=== PATIENT | male | born 1995 | race Caucasian/White ===

== ENCOUNTER 2025-01-06 12:12 | Outpatient (CLI) | payer BC, SELFPAY ==
[2025-01-06 12:42] LABS: Hematocrit 44.3 % (42.0-52.0); Hemoglobin 14.8 g/dL (14.0-18.0); Mean Corpuscular HGB Conc 33.4 g/dl (32-36); Mean Corpuscular Volume 89.7 fl (80-100); Mean Platelet Volume 9.4 fl (7.4-10.4); Platelet Count Result 284 k/mm3 (150-375); Red Blood Count 4.94 M/mm3 (4.6-6.20); Red Cell Distribution Width 12.3 % (11.5-14.5); White Blood Count 9.4 K/mm3 (4.5-10.0)
--- OUTSIDE RECORDS SUMMARY | 2025-01-06 13:00 | XMS_ITS | Encounter Summary ---
Author Organization [facility] Address [facility] [place] [address] Care Team Providers Care Netbackup Admin Name Role Phone Kuldeep Hernandez MD Primary Care Provider Unavailable Austen Muniz MD Primary Care Provider Unav ailable Jose Luis Muniz MD Primary Care Provider [phone] Encounter Details Date Type Department Care Team (Late st Contact Info) Description 08/22/2017 Abstract [place] [address] Kuldeep Hernandez MD Social History Tobacco Use Types Packs/Day Years Used Date Smoking Tobacco: Never Assessed Sex and Gender Information Value Date Recorded Sex Assigned at Not on file Legal Sex Male 8:18 PM CDT Gender Identity Not on file Sexual Orientation Not on file documented as of this encounter Plan of Treatment Not on file documented as of this encounter Visit Diagnoses Not on filedocumented in this encounter Additional Health Concerns Infection Onset Date Last Indicated Resolved Time COVID-19 Rule Out 03/26/2021 03/26/2021 03/28/2021 3:11 PM CDT documented as of this encounter Care Teams Netbackup Admin Relationship Specialty Start Date End Date Kuldeep Hernandez MD PCP - General 01/18/15 Austen Muniz MD PCP - General FAMILY PRACTICE 06/13/19 03/28/20 Jose Luis Muniz MD [address] [facility] [address] [place] [address] PCP - General FAMILY PRACTICE 03/29/20 documented as of this encounter
--- OUTSIDE RECORDS SUMMARY | 2025-01-06 13:00 | XMS_ITS | Clinical Summary ---
Author Organization [facility] Address [address] [address] Care Team Providers Care Fruit Bar Maker Name Role Phone Unavailable Primary Care Provider Unavailabl e Medications fenofibrate (LOFIBRA) 160 mg Tablet take 1 tablet (160 mg) by MOUTH once daily 90 Tablet 3 3 6:18 PM GOLF CLUB REPAIRER 10/23/19 23 Active buPROPion HCL (WELLBUTRIN XL) 150 mg Extended Release 24 hour tablet Take 1 Tablet (150 mg) by mouth daily. 30 Tablet 5 4 3:47 PM CDT 11/23/19 24 Active glucagon (Gvoke HypoPen 2-Pack) 1 mg/0.2 mL Auto-Injector Inject 0.2 milliliter (1 mg) by subcutaneous route once in the abdomen, thigh, or upper arm. May repeat in 15 minutes if inadequate response. 0.4 mL 1 4 3:07 PM GOLF CLUB REPAIRER 12/04/19 24 Active Insulin Syringe-Needl e U-100 0.5 mL 31 gauge x 5/16 Syringe Use to inject humalog at mealtimes 180 Each 2 4 2:15 PM GOLF CLUB REPAIRER 12/04/19 24 Active insulin glargine U-300 conc (Toujeo SoloStar U-300 Insulin) 300 unit/mL pen syringe Inject 50 Units by subcutaneous injection every evening 15 mL 5 4 4:50 PM GOLF CLUB REPAIRER 12/08/19 24 Active triamcinolone acetonide (KENALOG) 0.1 % Ointment Apply to affected area(s) on trunk and extremities two times a day for 14 days, then apply as needed 454 Gram 1 4 8:30 AM CDT 01/08/20 24 Active buPROPion HCL (WELLBUTRIN XL) 300 mg Extended Release 24 hour tablet Take 1 Tablet (300 mg) by mouth daily. 90 Tablet 3 04/11/20 24 Active buPROPion HCL (WELLBUTRIN XL) 300 mg Extended Release 24 hour tablet Take 1 Tablet (300 mg) by mouth daily. 90 Tablet 1 4 9:57 AM CDT 06/30/20 24 Active glucagon (Gvoke HypoPen 2-Pack) 1 mg/0.2 mL Auto-Injector Inject 1 mg (0.2 ml) by subcutaneous route once in the abdomen, thigh, or upper arm. May repeat in 15 minutes if inadequate response. 0.4 mL 4 3:11 PM CDT 07/19/20 24 Active mupirocin (BACTROBAN) 2 % Ointment Apply to wound two times a day 22 Gram 4 3:11 PM CDT 08/02/20 24 Active tirzepatide, weight loss, (Zepbound) 2.5 mg/0.5 mL Pen Injector Inject 2.5 mg by subcutaneous injection every 7 days. 2 mL 08/03/20 24 Active ketoconazole (NIZORAL) 2 % Cream Apply to feet two times a day as directed 30 Gram 3 5 4:10 PM GOLF CLUB REPAIRER 11/07/19 25 Active insulin lispro (HumaLOG,ADME LOG) 100 unit/mL vial Use as directed for insulin pump, Max Daily Dose: 150 units 80 mL 5 12:48 PM CDT 11/28/19 25 Active insulin pump cart,auto,BT, G6/L (Omnipod 5, G6/Tyrel 2 Plus,) Cartridge Change every 2 days as directed 120 Each 2 01/07/20 25 Active insulin lispro (HumaLOG,ADME LOG) 100 unit/mL vial Use as directed for insulin pump, Max Daily Dose: 150 units 80 mL 01/07/20 25 Active Blood-Glucose Sensor (FreeStyle Tyrel 2 Plus Sensor) Device change sensor every 15 days 6 Each 12 01/07/20 25 Active glucagon (Gvoke HypoPen 2-Pack) 1 mg/0.2 mL Auto-Injector Inject 1 mg (0.2 mL) subcutaneously once. May repeat once after 15 minutes if no response 0.4 mL 01/07/20 25 Active Blood-Glucose Sensor (Dexcom G7 Sensor) Device Use one sensor every 10 days 9 Each 3 10/01/05 Discontinued Encounters Date Type Department Care Team Description 12/13/2024 External Device Data ST[facility] ABSTRACTION Provider, Abstract 12/07/2024 External Device Data [facility] ABSTRACTION Provider, Abstract 11/09/2024 External Device Data [facility] ABSTRACTION Provider, Abstract 11/08/2024 External Device Data [facility] ABSTRACTION Provider, Abstract 11/01/2024 External Device Data [facility] ABSTRACTION Provider, Abstract from Last 3 Months Social History Tobacco Use Types Packs/Day Years Used Date Smoking Tobacco: Never Assessed Sex and Gender Information Value Date Recorded Sex Assigned at Not on file Legal Sex Male 11:33 AM CDT Gender Identity Not on file Sexual Orientation Not on file Plan of Treatment Health Maintenance Due Date Last Done Comments DTAP/TDAP/TD VACCINES (1 - Tdap) 2013 HEPATITIS B VACCINES (1 of 3 - 19+ 3-dose series) 2013 INFLUENZA VACCINE (#1) 2024 HPV VACCINES Aged Out No longer eligi ble based on patient's age to complete this topic PNEUMOCOCCAL VACCINE 0-49 YEARS Aged Out No longer eligible based on patient's age to complete this topic Insurance RX [facility] Commercial
--- OUTSIDE RECORDS SUMMARY | 2025-01-06 13:00 | XMS_ITS | Referral Summary ---
Author Organization [address] Address [address] [place] [address] Care Team Providers Care Dictating Machine Typist Name Role Phone Jose Luis Muniz MD Primary Care Provider [phone] [phone] Allergies Active Allergy Reactions Criticality Noted Date Comments Ciprofloxacin Hives Medium 01/02/2021 Medications Contour Next Test Strips strip USE TO CHECK BLOOD SUGAR SIX TIMES A DAY 1 Active cetirizine (ZyrTEC) 10 mg tablet Take 10 mg by mouth daily Active clobetasoL (TEMOVATE) 0.05 % gel 0 Active glucagon (glucagon) 1 mg kit Glucagon Emergency 1 MG Injection KitUSE DIRECTED 0 Active HumaLOG U-100 Insulin 100 unit/mL injection UP TO 110 UNITS VIA INSULIN PUMP DAILY 1 Active ketoconazole (NIZORAL) 2 % cream 1 Active metFORMIN (GLUCOPHAGE) 500 mg tablet Take 1,000 mg by mouth 2 times daily 0 Active omeprazole (PriLOSEC) 20 mg capsule Take 20 mg by mouth daily Active simvastatin (ZOCOR) 40 mg tablet Take 40 mg by mouth daily 0 Active Active Problems Problem Noted Date Diagnosed Date ROSALIE (obstructive sleep apnea) 01/02/2021 Parasomnia 01/02/2021 Overview (01/02/2021): Stable Overweight 01/02/2021 Overview (01/02/2021): Patient will work on weight reduction. Moderate persistent asthma without complication 01/02/2021 Obstructive sleep apnea 01/02/2021 Social History Tobacco Use Types Packs/Day Years Used Date Smoking Tobacco: Never Smokeless Tobacco: Never Personal Safety Answer Date Recorded Getting School Help Needed Not on file 12/19 Sex and Gender Information Value Date Recorded Sex Assigned at Not on file Legal Sex Male 9:01 PM COMPRESSOR SERVICE TECHNICIAN Gender Identity Not on file Sexual Orientation Not on file Last Filed Vital Signs Vital Sign Reading Time Taken Comments Blood Pressure 124/82 01/02/2021 8:25 AM CDT Pulse 103 01/02/2021 8:25 AM CDT Temperature 36.4 C (97.5 F) 01/02/2021 8:25 AM CDT Respiratory Rate 18 01/02/2021 8:25 AM CDT Oxygen Saturation 98% 01/02/2021 8:25 AM CDT Inhaled Oxygen Concentration - - Weight 135.2 kg (298 lb) 01/02/2021 8:25 AM CDT Height 180.3 cm (5' 11 ) 09/25/2019 5:30 PM COMPRESSOR SERVICE TECHNICIAN Body Mass Index 41.56 09/25/2019 5:30 PM COMPRESSOR SERVICE TECHNICIAN Plan of Treatment Not on file Insurance [employer] Care Teams Dictating Machine Typist Relationship Specialty Start Date End Date Jose Luis Muniz MD [address] [facility] [address] [place] [address] PCP - General 09/25/19
--- OUTSIDE RECORDS SUMMARY | 2025-01-06 13:00 | XMS_ITS | Encounter Summary ---
Author Organization [facility] Address [address] [place] [address] Care Team Providers Care Bulk Picker Name Role Phone Unavailable Primary Care Provider Unavailabl e Prior Encounters Date Type Department Care Team Description 01/28/2022 6:15 PM CDT Office Visit [facility] [address] [place] [address] Rachel Landry, DMD 01/28/2022 6:00 PM CDT Office Visit [facility] [address] [place] [address] 07/02/2021 Travel 07/02/2021 6:00 PM CDT Office Visit [facility] [address] [place] [address] Rachel Landry, DMD 07/02/2021 6:00 PM CDT Office Visit [facility] [address] [place] [address] Beena Hallman, [facility] 11/07/2019 Converted CPS Chart Documents [facility] [address] [place] [phone] <No scans attached> 11/07/2019 Converted 13x Documents [facility] [address] [place] [phone] <No scans attached> Last Filed Vital Signs Vital Sign Reading Time Taken Comments Blood Pressure 126/98 01/28/2022 6:06 PM CDT Pulse 91 01/28/2022 6:06 PM CDT Temperature - - Respiratory Rate - - Oxygen Saturation - - Inhaled Oxygen Concentration - - Weight - - Height - - Body Mass Index - - Plan of Treatment Not on file Procedures Procedure Name Priority Date/Time Associated Diagnosis Comments BITEWINGS - FOUR RADIOGRAPHIC IMAGES Routine 01/28/2022 6:15 PM CDT PERIODIC ORAL EVALUATION - ESTABLISHED PATIENT Routine 01/28/2022 6:15 PM CDT TOPICAL APPLICATION OF FLUORIDE VARNISH Routine 01/28/2022 6:00 PM CDT PROPHYLAXIS - ADULT Routine 01/28/2022 6 :00 PM CDT ORAL HYGIENE INSTRUCTIONS Routine 2021 6:00 PM CDT PERIODIC ORAL EVALUATION - ESTABLISHED PATIENT Routine 07/02/2021 6:00 PM CDT ORAL HYGIENE INSTRUCTIONS Routine 2020 6:00 PM CDT TOPICAL APPLICATION OF FLUORIDE VARNISH Routine 07/02/2021 6:00 PM CDT PROPHYLAXIS - ADULT Routine 07/02/2021 6 :00 PM CDT PERIODIC ORAL EVALUATION - ESTABLISHED PATIENT Routine 12/25/2020 2:00 AM IRON CARRIER ORAL HYGIENE INSTRUCTIONS Routine 2020 2:00 AM IRON CARRIER TOPICAL APPLICATION OF FLUORIDE VARNISH Routine 12/25/2020 2:00 AM IRON CARRIER PROPHYLAXIS - ADULT Routine 12/25/2020 2 :00 AM IRON CARRIER ORAL HYGIENE INSTRUCTIONS Routine 2019 2:00 AM CDT TOPICAL APPLICATION OF FLUORIDE VARNISH Routine 06/18/2020 2:00 AM CDT PROPHYLAXIS - ADULT Routine 06/18/2020 2 :00 AM CDT PERIODIC ORAL EVALUATION - ESTABLISHED PATIENT Routine 06/18/2020 2:00 AM CDT CANCELLED APPOINTMENT Routine 05/23/2020 2:00 AM CDT ORAL HYGIENE INSTRUCTIONS Routine 2019 2:00 AM IRON CARRIER PROPHYLAXIS - ADULT Routine 11/24/2019 2 :00 AM IRON CARRIER COMPREHENSIVE ORAL EVALUATION - NEW OR ESTABLISHED PATIENT Routine 11/24/2019 2:00 AM IRON CARRIER PANORAMIC RADIOGRAPHIC IMAGE Routine 11/24/2019 2:00 AM IRON CARRIER INTRAORAL - COMPREHENSIVE SERIES OF RADIOGRAPHIC IMAGES Routine 11/24/2019 2:00 AM IRON CARRIER INTRAORAL PHOTO Routine 11/24/2019 2:00 AM IRON CARRIER INTRAORAL PHOTO Routine 11/24/2019 2:00 AM IRON CARRIER INTRAORAL PHOTO Routine 11/24/2019 2:00 AM IRON CARRIER INTRAORAL PHOTO Routine 11/24/2019 2:00 AM IRON CARRIER Visit Diagnoses Not on file Insurance [facility] PPO
--- OUTSIDE RECORDS SUMMARY | 2025-01-06 13:00 | XMS_ITS | Encounter Summary ---
Author Organization [facility] Address [address] [place] [address] Care Team Providers Care Senior Software Analyst Name Role Phone Unavailable Primary Care Provider Unavailabl e Encounter Details Date Type Department Care Team (Late st Contact Info) Description 01/08/2024 Lab Requisition [facility] - DermPath Lab [address] [facility] [place] [address] Macy Richardson MD [address] [facility] [address] [place] [address] Social History Tobacco Use Types Packs/Day Years Used Date Smoking Tobacco: Never Assessed Sex and Gender Information Value Date Recorded Sex Assigned at Not on file Gender Identity Not on file Sexual Orientation Not on file documented as of this encounter Plan of Treatment Not on file documented as of this encounter Procedures Procedure Name Priority Date/Time Associated Diagnosis Comments DERMATOPATHOLOGY Routine 01/08/2024 8:49 AM CDT documented in this encounter Results * DERMATOPATHOLOGY (01/08/2024 8:49 AM CDT) Case Report Dermatopathology Report Case: [id number] Authorizing Provider: Macy Richardson MD Collected: 01/08/2024 08:49 AM Ordering Location: [facility] - Received: 01/11/2024 10:21 AM DermPath Lab Pathologist: Pauly Walton MD Specimen: Skin, right flank 4 3:42 PM CDT DERMATOPATHOLOGY LABORATORY Final Diagnosis Specimen A. SKIN, right flank: PSORIASIFORM DERMATITIS (L44.8) (see microscopic description and comment) 4 3:42 PM CDT DERMATOPATHOLOGY LABORATORY Clinical History [place] Scaly papules / Plaques Trunk, Axilla in Guinal folds, Buttocks - AD vs 3:42 PM CDT DERMATOPATHOLOGY LABORATORY Gross Description Specimen A: Received is one formalin filled container labeled with the patient's name and designated right flank. The specimen consists of a punch biopsy measuring 4x3x4 mm. Jar 0. 3:42 PM CDT DERMATOPATHOLOGY LABORATORY Microscopic Description Specimen A. SKIN, right flank: There is psoriasiform hyperplasia of the epidermis with focal parakeratosis and spongiosis. Focal hypogranulosis is present. There is a superficial, mainly lymphohistiocytic inflammatory infiltrate. Eosinophils are not seen. IL-36 immunostain shows weak patchy positivity in the superficial aspect of the epidermis. Grocott's methenamine silver (GMS) stain is negative for fungal elements in the sections examined. Additional deeper sections were obtained and reviewed. COMMENT: The histological differential diagnosis includes a chronic eczematous dermatitis, which is favored, and early / partially treated psoriasis. 3:42 PM T DERMATOPATHOLOGY LABORATORY Disclaimer An external and internal positive and negative controls are appropriate for the histochemical, immunohistochemical and immunofluorescence stain(s) in this case (if any), except where stated explicitly. The performance characteristics of the stain(s) cited in this report were developed and its performance characteristic determined by the Dermatopathology Laboratory at [facility], directed by Dr. Salvador Mays. These tests need not be, and therefore are not, approved by the [place] Food and Drug Administration. The tests are used for clinical purposes. Billing Codes Specimen Charges Stain Charges 18882 1 [id number] 1 1 4 3:42 PM CDT DERMATOPATHOLOGY LABORATORY Embedded Images 3:42 PM CDT DERMATOPATHOLOGY LABORATORY Pathology/Cytolo gy TISSUE SPECIMEN FROM SKIN / Unknown 01/08/2024 8:49 AM CDT 01/11/2024 10:21 AM CDT Macy Richardson MD LAB - PATHOLOGY/CYT OLOGY ORDERABLES DERMATOPATHOLOGY LABORATORY [facility] - Department of Dermatology [address] [phone] documented in this encounter Visit Diagnoses Not on filedocumented in this encounter
--- OUTSIDE RECORDS SUMMARY | 2025-01-06 13:00 | XMS_ITS | Clinical Summary ---
Author Organization [address] Address [address] [place] [address] Care Team Providers Care Coal Handling Supervisor Name Role Phone Jose Luis Muniz MD Primary Care Provider +1 [phone] Allergies Active Allergy Reactions Criticality Noted Date [...] without complication 01/02/2021 Obstructive sleep apnea 01/02/2021 Medical History Medical History Date Comments ROSALIE (obstructive sleep apnea) 01/02/2021 Parasomnia 01/02/2021 Stable Moderate persistent asthma without complication 01/02/2021 Acquired clotting factor deficiency Family History Relation Name Status Comments Father Social History Tobacco Use Types Packs/Day Years Used Date Smoking Tobacco: Never Smokeless Tobacco: Never Personal Safety Answer Date Recorded Getting School Help Needed Not on file 12/19 Sex and Gender Information Value Date Recorded Sex Assigned at Not on file Legal Sex Male 9:01 PM CANCELLATION CLERK Gender Identity Not on file Sexual Orientation Not on file Obstetrics History Last Filed Vital Signs Vital Sign Reading [...] cm (5' 11 ) 09/25/2019 5:30 PM CANCELLATION CLERK Body Mass Index 41.56 09/25/2019 5:30 PM CANCELLATION CLERK Plan of Treatment Not on file Insurance [employer] Care Teams Coal Handling Supervisor Relationship Specialty Start Date End Date Jose Luis Muniz MD [address] [address] PCP - General 09/25/19
--- OUTSIDE RECORDS SUMMARY | 2025-01-06 13:00 | XMS_ITS | Clinical Summary ---
Author Organization [facility] Address Formerly [facility] [place] [address] Care Team Providers Care Water Pump Assembler Name Role Phone Jose Luis Muniz MD Primary Care Provider [phone] Allergies Active Allergy Reactions Criticality Noted Date Comments Ciprofloxacin Hives Medium 10/17/2017 Other reaction(s): Hives Prednisone Hives Medium 02/24/2012 Got hives when he took prednisone Other reaction(s): Hives Got hives when he took prednisone Medications omeprazole 20 MG capsule Take 20 mg by mouth daily. Active cetirizine 10 MG tablet Take 10 mg by mouth daily. Active MICROLET LANCETS Misc Active Insulin Infusion Pump (MINIMZambikes [place] 670G INSULIN PUMP) DeviceIndications :Type 1 diabetes mellitus with hyperglycemia ([facility]) basal rates 68.85 u/24h midnight 2.3u/hr 4am 2.85 u/hr (increased from 2.5) 9am 3.0 u/hr 8pm 3.2 u/hr 10 pm 3.0 u/hr insulin to carb ratio midnight 1:2g ISF 1:14 mg/dl , target Bs 120-120 active insulin time 4 h 1 Device 1 06/13/20 19 Active Additional Information Patient taking differently: (No instructions reported), Reported on 05/28/2022 simvastatin 40 MG tablet Take 40 mg by mouth daily. 02/18/20 20 Active clobetasol 0.05 % Gel as needed. 03/23/20 20 Active glucagon (GLUCAGON EMERGENCY) 1 MG injectionIndicati ons:Type 1 diabetes mellitus with hyperglycemia ([facility]) Glucagon Emergency 1 MG Injection KitUSE DIRECTED 1 kit 3 08/23/20 20 Active Glucose Blood (CONTOUR NEXT TEST) test stripIndications: Type 1 diabetes mellitus with hyperglycemia ([facility]),Insulin pump in place 1 strip by Other route 6 (six) times daily. 200 strip 3 07/11/20 21 Active CONTOUR NEXT EZ w/Device KitIndications:Ty pe 1 diabetes mellitus with hyperglycemia ([facility]) USE DIRECTED 1 kit 10/09/20 21 Active insulin lispro (HUMALOG) 100 UNIT/ML injection (VIAL)Indications :Type 1 diabetes mellitus with hyperglycemia ([facility]),Insulin pump in place 120 units Daily via insulin pump 100 mL 3 09/25/20 22 Active Active Problems Problem Noted Date Diagnosed Date Moderate persistent asthma without complication ([facility]) 01/02/2021 Obstructive sleep apnea syndrome 01/02/2021 Overweight 01/02/2021 Overview (05/29/2022): Patient will work on weight reduction. Patient will work on weight reduction. Parasomnia 01/02/2021 Overview (05/29/2022): Stable Stable Acid reflux 08/23/2020 Seasonal allergies 08/23/2020 High blood cholesterol 05/17/[address] 05/17/2018 Heel pain 05/28/2015 Obese 05/28/2015 Overview (05/29/2022): Overview: Estimated Body mass index is 40.48 kg/(m^2) as calculated from the following: Height as of this encounter: 5' 9.488 (1.765 m). Weight as of this encounter: 278 lb(126.1 kg). Estimated Body mass index is 40.48 kg/(m^2) as calculated from the following: Height as of this encounter: 5' 9.488 (1.765 m). Weight as of this encounter: 278 lb(126.1 kg). Type 1 diabetes mellitus ([facility]) 11/01 Encounters Date Type Department Care Team Description 10/20/2024 1:29 AM MEDICINAL CHEMIST - 10/20/2024 2:28 AM MEDICINAL CHEMIST Emergency [facility] [place] [address] Eze Tierney MD,PHD Hand Injury Discharge Disposition: Home or Self Care (Routine Discharge) 10/20/2024 Travel from Last 3 Months Immunizations Name Administration Dates Next Due DTaP-IPV (Kinrix) 06/04/2000, 6,01/02/1995,10/30 Dtap (Generic) 06/04/2000,06/04/2000 Dtp/Hib 02/22/1996, 6,02/26/1995,02/26,01/02/1995,01/02/1995,1994 ,1994 Flublok (Quadrivalent) 08/22/2020 Flucelvax 6 Months+ (Prefill ed Syringe) 07/23/2019,07/23/2019 H1N1 Injectable 2009 Influenza 09/11/2009,2008 Hepatitis A Vaccine - 2 Dose 07/04/2009, 07/04/2009,07/03/2008,07/03 Hepatitis B Pediatric 02/27/1996, 996,1994,09/15,1994,1994 Influenza (Generic) 08/22/2020, 7,06/05/2016,06/05,06/13/2015,06/13/2015,06/13/2015 ,07/14/2014,07/11/2009,07/11/2009,08/19,08/30/2008,08/10/2007, 7,08/27/2006,08/27/2006,08/20/2005,11/2004,07/30/2004,07/30/2004,08/17/20 03,08/17/2003,08/29/2002,08/29/2002,,08/19/2001,09/17/2000, 000,10/25/1999,10/25/1999 Influenza 3 yrs + Preservati ve Free (Fluzone) 08/28/2017 Influenza Adult (Generic) 08/14/2021,07/14/2014 MMR (Generic) 06/04/2000,11/02/1995 Mamtjxd-Pghml-Fbjmbmh-Varicell Sc Inj 06/04/2000 ,11/02/1995 Meningococcal Vac A,C,Y,W-135 Sc 013,03/29/2013,10/07/2006,10/07 Pneumococcal (Pneumovax 23) 09/08/2019, 9 Polio Ipv (Generic) 06/04/2000, 6,01/02/1995,10/30 Tdap (Generic) 07/04/2009,07/04/2009 Varicella Vaccine 07/04/2009, 9,11/02/1995,11/02 Family History Medical History Relation Comments Clotting Disorder Father Hypertension Father Hypertension Mother Relation Status Comments Father Mother Alive Social History Tobacco Use Types Packs/Day Years Used Date Smoking Tobacco: Never Smokeless Tobacco: Never Alcohol Use Standard Drinks/Week Comments No 0 (1 standard drink = 0.6 oz pur e alcohol) PHQ-2 Answer Date Recorded PHQ-2 Score - If the patient scores above 3, please move on to questions 3-9 0 05/28/2022 Sex and Gender Information Value Date Recorded Sex Assigned at Not on file Legal Sex Male 8:18 PM CDT Gender Identity Not on file Sexual Orientation Not on file Last Filed Vital Signs Vital Sign Reading Time Taken Comments Blood Pressure 140/86 10/20/2024 1:35 AM MEDICINAL CHEMIST Pulse 88 10/20/2024 1:14 AM MEDICINAL CHEMIST Temperature 36.4 C (97.5 F) 10/20/2024 1:14 AM MEDICINAL CHEMIST Respiratory Rate 20 10/20/2024 1:14 AM MEDICINAL CHEMIST Oxygen Saturation 99% 10/20/2024 1:14 AM MEDICINAL CHEMIST Inhaled Oxygen Concentration - - Weight 138 kg (304 lb 3.8 oz) 10/20/2024 1:14 AM MEDICINAL CHEMIST Height 180.3 cm (5' 11 ) 10/20/2024 1:14 AM MEDICINAL CHEMIST Body Mass Index 42.43 10/20/2024 1:14 AM MEDICINAL CHEMIST Plan of Treatment Health Maintenance Due Date Last Done Comments Kidney Health Evaluation 1994 Annual Physical 1997 Diabetes: Retinopathy Eye Exam 2012 Hepatitis C 2012 DTaP, Tdap and Td Vaccines (5 - Td or Tdap) 07/04/2019 07/04/2009, 07/04/2009, 06/04/2000, Additional history exists Pneumococcal Vaccine: Pediatrics (0 to 5 Years) and At-Risk Patients (6 to 64 Years) (2 of 2 - PCV) 09/08/2020 09/08/2019, 09/08/2019 Lipid Panel 08/14/2022 08/14/2021, 06/01/2015 Hemoglobin A1C 04/20/2023 10/21/2022, 05/19, 11/14/2021, Additional history exists COVID-19 Vaccine ( season) 2024 Influenza Adult (#1) 2024 08/14/2021, 08/22/2020, 08/22/2020, Additional history exists Hepatitis B Vaccines Completed 02/27/1996, 02/27/1996, 1994, Additional history exists Meningococcal Vaccine Aged Out 03/29/2013 , 03/29/2013, 10/07/2006, Additional history exists No longer eligible based on patient's age to complete this topic HPV Vaccines Aged Out No longer eligi ble based on patient's age to complete this topic Meningococcal B Vaccine Aged Out No l onger eligible based on patient's age to complete this topic RSV Immunizations Under 20 Months Aged Out No longer eligible based on patient's age to complete this topic Procedures Procedure Name Priority Date/Time Associated Diagnosis Comments XR HAND LT 3V STAT 10/20/2024 1:50 AM MEDICINAL CHEMIST OUTSIDE LAB (SCAN ORDER) Routine 10/21/2022 LIPID PANEL Routine 08/14/2021 9:15 AM CDT Type 1 diabetes mellitus with hyperglycemia from Last 3 Months or Most Recently Relevant to Health Maintenance Results * XR HAND LT 3V (10/20/2024 1:50 AM MEDICINAL CHEMIST) Anatomical Region Laterality Modality Hand Radiographic Juana ging 10/20/2024 1:51 AM MEDICINAL CHEMIST Impressions 10/20/2024 1:53 AM MEDICINAL CHEMIST IMPRESSION: 1. NO EVIDENCE OF ACUTE FRACTURE OR DISLOCATION. Signed: Lamont Child MD Referred By: Interpreted By: Lamont Child MD, 10/20/2024 1:51 AM Narrative 10/20/2024 1:53 AM MEDICINAL CHEMIST [place] [address] PATIENT NAME: LIDIA POWELL EXAM: Left hand 3 view DATE OF EXAM: 10/20/2024 COMPARISON EXAM: None INDICATION: Crush injury TECHNIQUE: AP, lateral and oblique left hand FINDINGS: Nonspecific dorsal soft tissue swelling. There is no evidence of acute fracture or dislocation. Joint spaces are well-maintained. Procedure Note Lamont Child MD - 10/20/2024 [place] [address] PATIENT NAME: LIDIA POWELL EXAM: Left hand 3 view DATE OF EXAM: 10/20/2024 COMPARISON EXAM: None INDICATION: Crush injury TECHNIQUE: AP, lateral and oblique left hand FINDINGS: Nonspecific dorsal soft tissue swelling. There is no evidenceof acute fracture or dislocation. Joint spaces are well-maintained. IMPRESSION: 1. NO EVIDENCE OF ACUTE FRACTURE OR DISLOCATION. Signed: Lamont Child MD Referred By: Interpreted By: Lamont Child MD, 10/20/2024 1:51 AM [facility] Final Result * OUTSIDE LAB (SCAN) (10/21/2022) HGB A1C 8.7 % [facility] CREATININE (U) 82.3 [facility] ALBUMIN (U) <3.0 [facility] ALBUMIN/CREAT RATIO <4 [facility] 10/21/2022 [facility] Scanned SCANNING Final Resu lt [facility] * (ABNORMAL) LIPID PANEL (08/14/2021 9:15 AM CDT) CHOLESTEROL 183 <200 MG/DL 08/14/2021 10:19 AM CDT [facility] TRIGLYCERIDES 368(H) <150 MG/DL 08/14/2021 10:19 AM CDT [facility] HDL 34(L) >40.0 MG/DL 08/14/2021 10:19 AM CDT [facility] LDL (CALCULATED) 75 <100 MG/DL 08/14/2021 10:19 AM CDT [facility] NON HDL CHOLESTEROL 149(H) <130 MG/DL 08/14/2021 10:19 AM T [facility] CHOL/HDL RATIO 5.4(H) 0.0 - 4.5 08/14/2021 10:19 AM CDT [facility] VLDL CALCULATION 74(H) 5 - 55 MG/DL 08/14/2021 10:19 AM T [facility] LIPID INTERPRETATION 08/14/2021 10:19 AM T [facility] Comment: [facility] CONCENSUS REPORT RECOMMENDATIONS: ADULT CHILD LOW RISK: CHOLESTEROL <200 <170 TRIGLYCERIDE <150 --- HDL >=60 --- LDL <100 <110 BORDERLINE: CHOLESTEROL 200-239 170-199 TRIGLYCERIDE 150-199 --- HDL 40-59 --- LDL 100-159 110-129 HIGH RISK: CHOLESTEROL >=240 >=200 TRIGLYCERIDE >=200 --- HDL <40 --- LDL >=160 >=130 08/14/2021 9:15 AM CDT John Singleton MD LABORATORY Final Result [facility] [address] [place] [address], from Last 3 Months or Most Recently Relevant to Health Maintenance Insurance [facility] [employer] [facility] [place] Care Teams Water Pump Assembler Relationship Specialty Start Date End Date Jose Luis Muniz MD [address] [place] [address] PCP - General FAMILY PRACTICE 03/29/20
--- OUTSIDE RECORDS SUMMARY | 2025-01-06 13:00 | XMS_ITS | Clinical Summary ---
Author Organization [facility] [place] [address] [place] [address] Care Team Providers Care Stereotype Molder Name Role Phone Unavailable Primary Care Provider Unavailabl e Allergies Active Allergy Reactions Criticality Noted Date Comments Ciprofloxacin Hives Medium 10/17/2017 Other reaction(s): Hives Prednisone Medium 02/24/2012 Other reaction(s): Hives Got hives when he took prednisone Medications atorvastatin calcium (ATORVASTATIN ORAL) Active accu-chek soft touch lancets by Not Applicable route. Active glucose blood (Contour Next Test Strips) test strip USE TO CHECK BLOOD SUGAR SIX TIMES A DAY 1 Active cetirizine (ZyrTEC) 10 mg tablet Take 10 mg by mouth 1 (one) time each day. Active clobetasoL (TEMOVATE) 0.05 % gel 0 Active terbinafine (LamISIL) 250 mg tablet 1 Active omeprazole OTC (PriLOSEC OTC) 20 mg EC tablet Active omeprazole (PriLOSEC) [address] capsule Take 20 mg by mouth 1 (one) time each day. Active metFORMIN (GLUCOPHAGE) 500 mg tablet Take 1,000 mg by mouth twice a day. 0 Active glucagon 1 mg/mL injection Glucagon Emergency 1 MG Injection KitUSE DIRECTED 0 Active insulin lispro (HumaLOG) 100 unit/mL injection Up to 110 units Via insulin pump daily 0 Active ketoconazole (NIZORAL) 2 % cream 1 Active glucose monitoring kit (FREESTYLE) monitoring kit See administration instructions. 1 Active glucose monitoring kit (FREESTYLE) monitoring kit 1 strip. 1 Active NovoLOG U-100 Insulin aspart 100 unit/mL injection INJECT 150 UNITS INTO THE SKIN DAILY VIA INSULIN PUMP 2 Active Active Problems Problem Noted Date Diagnosed Date Moderate persistent asthma without complication 01/02/2021 Obstructive sleep apnea syndrome 01/02/2021 Overweight 01/02/2021 Overview (07/02/2021): Patient will work on weight reduction. Parasomnia 01/02/2021 Overview (07/02/2021): Stable Acid reflux 08/23/2020 Seasonal allergies 08/23/2020 High blood cholesterol 05/17/[address] 05/17/2018 Heel pain 05/28/2015 Obese 05/28/2015 Overview (07/02/2021): Overview: Estimated Body mass index is 40.48 kg/(m^2) as calculated from the following: Height as of this encounter: 5' 9.488 (1.765 m). Weight as of this encounter: 278 lb(126.1 kg). Type 1 diabetes mellitus 11/01/2004 Immunizations Immunization Administration Dates Next Due DTP / Hib 02/22/1996, 5,01/02/1995,10/30 DTaP, unspecified 06/04/2000 DTaP-IPV 06/04/2000, 6,01/02/1995,10/30 Hep B, adolescent or pediatric 02/27/1996,1993,1994 Hepatitis A, ped/adol, 2 dose 07/04/2009, 008 Influenza, injectable, MDCK, quadrivalent, preservative 07/23/2019 Influenza, split virus, trivalent, PF 08/28/2017 Influenza, unspecified 08/22/2020,2015,06/13/2015,07/14,07/11/2009,08/30/2008,08/10/2007 ,08/27/2006,08/20/2005,07/30/2004,07/21,08/29/2002,08/19/2001, 0,10/25/1999 MMRV 06/04/2000,11/02/1995 Meningococcal MCV4P 03/29/2013,10/07/2006 Novel [id number]-[id number], all formulations 09/11/2009 Pneumococcal polysaccharide PPV23 09/08/2019 Tdap 07/04/2009 Varicella 07/04/2009,11/02/1995 Social History Tobacco Use Types Packs/Day Years Used Date Smoking Tobacco: Never Smokeless Tobacco: Never Sex and Gender Information Value Date Recorded Sex Assigned at Not on file Legal Sex Male 1:20 PM PST Gender Identity Not on file Sexual Orientation Not on file Last Filed Vital Signs Vital Sign Reading Time Taken Comments Blood Pressure 126/98 01/28/2022 6:06 PM CDT Pulse 91 01/28/2022 6:06 PM CDT Temperature - - Respiratory Rate - - Oxygen Saturation - - Inhaled Oxygen Concentration - - Weight - - Height - - Body Mass Index - - Plan of Treatment Health Maintenance Due Date Last Done Comments Dental Oral Exam 07/31/2022 01/28/2022, , 12/25/2020, Additional history exists Dental Prophylaxis 07/31/2022 01/28/2022, 0 07/02/2021, 12/25/2020, Additional history exists Dental X-Ray: Bitewings 07/31/2022 01/28/2022 Dental X-Ray: Full Mouth 05/22/2023 05/21/2020, 03/2020 Dental X-Ray: Panoramic 05/22/2023 05/21/2020, 11/24 Meningococcal B Vaccine Aged Out No l onger eligible based on patient's age to complete this topic Procedures Procedure Name Priority Date/Time Associated Diagnosis Comments PERIODIC ORAL EVALUATION - ESTABLISHED PATIENT Routine 01/28/2022 6:15 PM CDT PROPHYLAXIS - ADULT Routine 01/28/2022 6 :00 PM CDT PANORAMIC RADIOGRAPHIC IMAGE Routine 11/24/2019 2:00 AM COOK STATION INTRAORAL - COMPREHENSIVE SERIES OF RADIOGRAPHIC IMAGES Routine 11/24/2019 2:00 AM COOK STATION from Last 3 Months or Most Recently Relevant to Health Maintenance [facility]
--- OUTSIDE RECORDS SUMMARY | 2025-01-06 13:00 | XMS_ITS | Clinical Summary ---
Author Organization [facility] Address [address] [place] [address] Care Team Providers Care Contact Acid Plant Operator Name Role Phone Unavailable Primary Care Provider Unavailabl e Source Comments [facility],non-owned Affiliates and Associated Physician Practices is amultiple site organization consisting of ambulatory clinics and hospital sitesin [place], [place], [place] and [place]. This disclosure is being madepursuant to the Care Everywhere program and may not contain all information available regarding this patient. Last updated 18.[facility] [employer] Social History Tobacco Use Types Packs/Day Years Used Date Smoking Tobacco: Never Assessed Sex and Gender Information Value Date Recorded Sex Assigned at Not on file Gender Identity Not on file Sexual Orientation Not on file Plan of Treatment Health Maintenance Due Date Last Done Comments HIV SCREENING 2009 HEPATITIS C SCREENING 08/10/2012 DTAP/TDAP/TD VACCINES (1 - Tdap) 2013 HEPATITIS B VACCINE (1 of 3 - 19+ 3-dose series) 2013 COVID-19 VACCINE (1 - 2023-2 5 season) 2024 INFLUENZA VACCINE (#1) 2024 DEPRESSION SCREENING 10/19/2024 ZOSTER VACCINE (1 of 2) 2044 HIB VACCINE Aged Out No longer eligi ble based on patient's age to complete this topic HPV VACCINE Aged Out No longer eligi ble based on patient's age to complete this topic MENINGOCOCCAL (Group B) VACC INE SHARED DECISION-MAKING Aged Out No longer eligibl e based on patient's age to complete this topic MENINGOCOCCAL GROUPS A/C/Y/W VACCINE Aged Out No longer eligible b ased on patient's age to complete this topic PNEUMOCOCCAL VACCINE Aged Out No long er eligible based on patient's age to complete this topic
--- OUTSIDE RECORDS SUMMARY | 2025-01-06 13:00 | XMS_ITS | Encounter Summary ---
Author Organization [facility] Address [address] [place] [address] Care Team Providers Care Cattle Inspector Name Role Phone Unavailable Primary Care Provider Unavailabl e Encounter Details Date Type Department Care Team (Late st Contact Info) Description 07/26/2024 Lab Requisition [facility] - Derm[facility] Lab [address] [place] [address] Macy Richardson MD [address] [facility] [place] [address] [place] [address] Social History Tobacco Use Types Packs/Day Years Used Date Smoking Tobacco: Never Assessed Sex and Gender Information Value Date Recorded Sex Assigned at Not on file Gender Identity Not on file Sexual Orientation Not on file documented as of this encounter Plan of Treatment Not on file documented as of this encounter Procedures Procedure Name Priority Date/Time Associated Diagnosis Comments DERMATOPATHOLOGY Routine 07/26/2024 3:28 PM CDT documented in this encounter Results * DERMATOPATHOLOGY (07/26/2024 3:28 PM CDT) Case Report Dermatopathology Report Case: [id number] Authorizing Provider: Macy Richardson MD Collected: 07/26/2024 03:28 PM Ordering Location: [facility] - Received: 07/27/2024 03:39 PM DermPath Lab Pathologist: Arina Walton MD Specimen: Skin, right inguinal fold 12:41 PM CDT DERMATOPATHOLOGY LABORATORY Final Diagnosis Specimen A. SKIN, right inguinal fold: ACROCHORDON (SOFT FIBROMA, SKIN TAG) (L91.8) 4 12:41 PM CDT DERMATOPATHOLOGY LABORATORY Clinical History IDN vs tag, irritated 4 12:41 PM CDT DERMATOPATHOLOGY LABORATORY Gross Description Specimen A: Received is one formalin filled container labeled with the patient's name and designated right inguinal fold. The specimen consists of a shave biopsy measuring [id number] mm. Jar 0. 12:41 PM CDT DERMATOPATHOLOGY LABORATORY Microscopic Description Specimen A. SKIN, right inguinal fold: There is a gently folded epidermis surrounding a connective tissue core in which fat and collagen are intermingled. 12:41 PM CDT DERMATOPATHOLOGY LABORATORY Disclaimer An external and internal positive and negative controls are appropriate for the histochemical, immunohistochemical and immunofluorescence stain(s) in this case (if any), except where stated explicitly. The performance characteristics of the stain(s) cited in this report were developed and its performance characteristic determined by the Dermatopathology Laboratory at [facility], directed by Dr. Salvador Mays. These tests need not be, and therefore are not, approved by the [place] Food and Drug Administration. The tests are used for clinical purposes. Billing Codes Specimen Charges Stain Charges 55888 1 12:41 PM CDT DERMATOPATHOLOGY LABORATORY Embedded Images 12:41 PM CDT DERMATOPATHOLOGY LABORATORY Pathology/Cytolo gy TISSUE SPECIMEN FROM SKIN / Unknown 07/26/2024 3:28 PM CDT 07/27/2024 3:39 PM CDT Macy Richardosn MD LAB - PATHOLOGY/CYT OLOGY ORDERABLES DERMATOPATHOLOGY LABORATORY [facility] - Department of Dermatology [address], [address] [phone] documented in this encounter Visit Diagnoses Not on filedocumented in this encounter
[2025-01-06 13:13] LABS: Alanine Aminotransferase 26 U/L (6-50); Albumin Level 4.2 g/dL (3.5-5.1); Alkaline Phosphatase 152 U/L (38-126); Amylase 49 U/L (30-110); Anion Gap 14 mmol/L (4-12); Aspartate Amino Transferase 25 U/L (17-59); Bilirubin,Total 0.4 mg/dL (0.2-1.3); Blood Urea Nitrogen 20 mg/dL (9-20); Calcium 9.2 mg/dL (8.4-10.2); Carbon Dioxide 25 mmol/L (22-30); Chloride 100 mmol/L (98-107); Cholesterol 234 mg/dL (0-200); Estimated Glomerular Filt Rate > 60; Glucose 286 mg/dL (65-110); Lipase 57 U/L (23-300); Potassium 4.3 mmol/L (3.4-5.0); Sodium 139 mmol/L (137-145)
[2025-01-06 13:15] LABS: HDL Direct 40 mg/dL
[2025-01-06 13:17] LABS: LDL Cholesterol Direct 37 mg/dL
[2025-01-06 13:25] LABS: Free T4 Free Thyroxine 1.44 ng/dL (0.78-2.19)
[2025-01-06 13:39] LABS: Triglycerides 557 mg/dL (<150)
[2025-01-06 13:41] LABS: Creatinine Urine 158.2 mg/dL
[2025-01-06 13:45] LABS: MALB Creatinine Ratio 5.2 mg/g (0-30); Microalbumin Urine Random 8.2 mg/L (0-16.7)
[2025-01-10 14:38] LABS: Glutamic acid decarboxylase AA >250 IU/mL (<5)
== END 2025-01-06 12:13 | disposition home or self-care (01) ==
LOC: ANHLAB 12:15
PROVIDERS: PCP Family Medicine; Visit Provider Internal Medicine
DX: E10.9 Type 1 diabetes mellitus without complications (principal); E78.5 Hyperlipidemia, unspecified
CPT/HCPCS: 36415; 80053; 80061; 82043; 82150; 83690; 84439; 84443; 85027; 86341

== ENCOUNTER 2025-01-27 14:40 | Outpatient (CLI) | payer BC, SELFPAY ==
--- NOTE | ~2025-01-27 | US_ITS ---
Abdominal Sonogram: Real-time sonographic imaging of the abdomen was performed. Clinical History: Diabetes Findings: The liver appears echogenic with no evidence of mass lesion or bile duct dilatation. Liver measures 18.2 cm in length. Main portal vein demonstrates normal direction of flow. The spleen is no rmal in size without evidence of focal lesion. The gallbladder is well distended, and appears normal with no evidence of gallstone or wall thickening. The common bile duct measures 6 mm. The visualize d pancreas, aorta, and IVC are unremarkable. The right kidney measures 13.1 cm in length and the lef t kidney measures 10.7 cm. There is no hydronephrosis or renal calculus. Impression: Diffuse fatty infiltration of the liver, with associated hepatomegaly. Reviewed, dictated and finalized at location . Impression: Diffuse fatty infiltration of the liver, with associated hepatomegaly.
--- OUTSIDE RECORDS SUMMARY | 2025-01-27 14:46 | XMS_ITS | Clinical Summary ---
Author Organization [address] Address [address] [place] [id number] Care Team Providers Care Kennel Keeper Name Role Phone Jose Luis Muniz MD Primary Care Provider [phone] Allergies Active Allergy Reactions Criticality Noted Date [...] on file Legal Sex Male 9:01 PM MUD ENGINEER Gender Identity Not on file Sexual Orientation [...] cm (5' 11 ) 09/25/2019 5:30 PM MUD ENGINEER Body Mass Index 41.56 09/25/2019 5:30 PM MUD ENGINEER Plan of Treatment Not on file Insurance [employer] Care Teams Kennel Keeper Relationship Specialty Start Date End Date Jose Luis Muniz MD [address] [address] PCP - General 09/25/19
--- OUTSIDE RECORDS SUMMARY | 2025-01-27 14:46 | XMS_ITS | Clinical Summary ---
Author Organization [facility] Address [address] [place] [address] Care Team Providers Care Commercial Intelligence Manager Name Role Phone Unavailable Primary Care Provider [...] 0,10/25/1999 MMRV 06/04/2000,11/02/1995 Meningococcal MCV4P 03/29/2013,10/07/2006 Novel [id number], all formulations 09/11/2009 Pneumococcal polysaccharide PPV23 09/08/2019 [...] PANORAMIC RADIOGRAPHIC IMAGE Routine 11/24/2019 2:00 AM KIDNEY PULLER INTRAORAL - COMPREHENSIVE SERIES OF RADIOGRAPHIC IMAGES Routine 11/24/2019 2:00 AM KIDNEY PULLER from Last 3 Months or Most Recently Relevant to Health Maintenance [facility]
--- OUTSIDE RECORDS SUMMARY | 2025-01-27 14:46 | XMS_ITS | Encounter Summary ---
Author Organization [facility] Address [address] [place] [address] Care Team Providers Care Gas Combustion Engineer Name Role Phone Unavailable Primary Care Provider Unavailabl e Encounter Details Date Type Department Care Team (Late st Contact Info) Description 01/08/2024 Lab Requisition [facility] - DermPath Lab [address] [facility], [place] [address] Macy Richardson MD [address] [facility] 3 [place] [address] Social History Tobacco Use Types Packs/Day Years [...] AM CDT) Case Report Dermatopathology Report Case: [id number] Authorizing Provider: Macy Richardson MD Collected: 01/08/2024 08:49 AM Ordering Location: [facility] - Received: 01/11/2024 10:21 AM DermPath Lab Pathologist: Pauly Walton MD Specimen: Skin, right flank 4 3:42 PM CDT DERMATOPATHOLOGY LABORATORY Final Diagnosis Specimen A. SKIN, right flank: PSORIASIFORM DERMATITIS (L44.8) (see microscopic description and comment) 4 3:42 PM CDT DERMATOPATHOLOGY LABORATORY Clinical History [place] Scaly papules / Plaques Trunk, Axilla in [...] characteristic determined by the Dermatopathology Laboratory at [facility], directed by Dr. Salvador Mays. These tests need not be, and therefore are not, approved by the [place] Food and Drug Administration. The tests are used for clinical purposes. Billing Codes Specimen Charges Stain Charges 42988 1 [id number] 56793 1 1 4 3:42 PM CDT DERMATOPATHOLOGY LABORATORY Embedded Images 3:42 PM CDT DERMATOPATHOLOGY LABORATORY Pathology/Cytolo gy TISSUE SPECIMEN FROM SKIN / Unknown 01/08/2024 8:49 AM CDT 01/11/2024 10:21 AM CDT Macy Richardson MD LAB - PATHOLOGY/CYT OLOGY ORDERABLES DERMATOPATHOLOGY LABORATORY [facility] - Department of Dermatology [address], [address] [phone] documented in this encounter Visit Diagnoses Not on filedocumented in this encounter
--- OUTSIDE RECORDS SUMMARY | 2025-01-27 14:46 | XMS_ITS | Referral Summary ---
Author Organization [address] Address [address] [place] [address] Care Team Providers Care Maxillofacial Surgeon Name Role Phone Jose Luis Muniz MD Primary Care Provider [phone] Allergies Active Allergy Reactions Criticality Noted Date [...] on file Legal Sex Male 9:01 PM CORE LOADER Gender Identity Not on file Sexual Orientation [...] cm (5' 11 ) 09/25/2019 5:30 PM CORE LOADER Body Mass Index 41.56 09/25/2019 5:30 PM CORE LOADER Plan of Treatment Not on file Insurance [employer] Care Teams Maxillofacial Surgeon Relationship Specialty Start Date End Date Jose Luis Muniz MD [address] [facility] [address] [place] [address] PCP - General 09/25/19
--- OUTSIDE RECORDS SUMMARY | 2025-01-27 14:46 | XMS_ITS | Clinical Summary ---
Author Organization [facility] Address [facility]ly [facility] [place] [address] Care Team Providers Care English Faculty Member Name Role Phone Jose Luis Muniz MD Primary Care Provider [phone] Allergies Active Allergy Reactions Criticality Noted Date [...] MICROLET LANCETS Misc Active Insulin Infusion Pump (MINIMPulse.io 670G INSULIN PUMP) DeviceIndications :Type 1 diabetes mellitus with hyperglycemia ([facility] HHS/HCC) basal rates 68.85 u/24h midnight 2.3u/hr [...] injectionIndicati ons:Type 1 diabetes mellitus with hyperglycemia ([facility] HHS/HCC) Glucagon Emergency 1 MG Injection KitUSE DIRECTED 1 kit 3 08/23/20 20 Active Glucose Blood (CONTOUR NEXT TEST) test stripIndications: Type 1 diabetes mellitus with hyperglycemia ([facility] HHS/[facility]),Insulin pump in place 1 strip by Other route 6 (six) times daily. 200 strip 3 07/11/20 21 Active CONTOUR NEXT EZ w/Device KitIndications:Ty pe 1 diabetes mellitus with hyperglycemia ([facility] HHS/HCC) USE DIRECTED 1 kit 10/09/20 21 Active insulin lispro (HUMALOG) 100 UNIT/ML injection (VIAL)Indications :Type 1 diabetes mellitus with hyperglycemia ([facility] HHS/[facility]),Insulin pump in place 120 units Daily via insulin pump 100 mL 3 09/25/20 22 Active Active Problems Problem Noted Date Diagnosed Date Moderate persistent asthma without complication ([facility]) 01/02/2021 Obstructive sleep apnea syndrome 01/02/2021 Overweight [...] 278 lb(126.1 kg). Type 1 diabetes mellitus ([facility]) 11/01 Immunizations Name Administration Dates Next Due DTaP-IPV [...] Influenza Adult (Generic) 08/14/2021,07/14/2014 MMR (Generic) 06/04/2000,11/02/1995 Zqqrggn-Bnudo-Ueauebm-Varicell Sc Inj 06/04/2000 ,11/02/1995 Meningococcal Vac A,C,Y,W-135 [...] Comments Blood Pressure 140/86 10/20/2024 1:35 AM PLASTICS SHEET FINISHING PRESS OPERATOR Pulse 88 10/20/2024 1:14 AM PLASTICS SHEET FINISHING PRESS OPERATOR Temperature 36.4 C (97.5 F) 10/20/2024 1:14 AM PLASTICS SHEET FINISHING PRESS OPERATOR Respiratory Rate 20 10/20/2024 1:14 AM PLASTICS SHEET FINISHING PRESS OPERATOR Oxygen Saturation 99% 10/20/2024 1:14 AM PLASTICS SHEET FINISHING PRESS OPERATOR Inhaled Oxygen Concentration - - Weight 138 kg (304 lb 3.8 oz) 10/20/2024 1:14 AM PLASTICS SHEET FINISHING PRESS OPERATOR Height 180.3 cm (5' 11 ) 10/20/2024 1:14 AM PLASTICS SHEET FINISHING PRESS OPERATOR Body Mass Index 42.43 10/20/2024 1:14 AM PLASTICS SHEET FINISHING PRESS OPERATOR Plan of Treatment Health Maintenance Due Date [...] history exists COVID-19 Vaccine ( season) 2024 Hepatitis B Vaccines Completed 02/27/1996, 02/27/1996, 1994, [...] Procedure Name Priority Date/Time Associated Diagnosis Comments OUTSIDE LAB (SCAN ORDER) Routine 10/21/2022 LIPID PANEL Routine 08/14/2021 9:15 AM CDT Type 1 diabetes mellitus with hyperglycemia from Last 3 Months or Most Recently Relevant to Health Maintenance Results * OUTSIDE LAB (SCAN) (10/21/2022) HGB A1C 8.7 % [facility] CREATININE (U) 82.3 [facility] ALBUMIN (U) <3.0 [facility] ALBUMIN/CREAT RATIO <4 [facility] 10/21/2022 [facility] Scanned SCANNING Final Resu lt [facility] * (ABNORMAL) LIPID PANEL (08/14/2021 9:15 AM CDT) CHOLESTEROL 183 <200 MG/DL 08/14/2021 10:19 AM CDT [facility] TRIGLYCERIDES 368(H) <150 MG/DL 08/14/2021 10:19 AM T [facility] HDL 34(L) >40.0 MG/DL 08/14/2021 10:19 AM CDT [facility] LDL (CALCULATED) 75 <100 MG/DL 08/14/2021 10:19 AM CDT [facility] NON HDL CHOLESTEROL 149(H) <130 MG/DL 08/14/2021 10:19 AM CDT [facility] CHOL/HDL RATIO 5.4(H) 0.0 - 4.5 08/14/2021 10:19 AM CDT [facility] VLDL CALCULATION 74(H) 5 - 55 MG/DL 08/14/2021 10:19 AM T [facility] LIPID INTERPRETATION 08/14/2021 10:19 AM T [facility] Comment: [facility] CONCENSUS REPORT RECOMMENDATIONS: ADULT CHILD LOW RISK: CHOLESTEROL <200 <170 TRIGLYCERIDE <150 --- HDL >=60 --- LDL <100 <110 BORDERLINE: CHOLESTEROL 200-239 170-199 TRIGLYCERIDE 150-199 --- HDL 40-59 --- LDL 100-159 110-129 HIGH RISK: CHOLESTEROL >=240 >=200 TRIGLYCERIDE >=200 --- HDL <40 --- LDL >=160 >=130 08/14/2021 9:15 AM CDT John Singleton MD LABORATORY Final Result [facility] [address] [place] [address], [place] [phone] from Last 3 Months or Most Recently Relevant to Health Maintenance Insurance [facility] BLUE [facility] [place] Care Teams English Faculty Member Relationship Specialty Start Date End Date Jose Luis Muniz MD [address] [place] [address] PCP - General FAMILY PRACTICE 03/29/20
--- OUTSIDE RECORDS SUMMARY | 2025-01-27 14:46 | XMS_ITS | Clinical Summary ---
Author Organization [facility] Address [address] [place] [address] Care Team Providers Care Dietary Services Director Name Role Phone Unavailable Primary Care Provider Unavailabl e Medications fenofibrate (LOFIBRA) 160 mg Tablet take 1 tablet (160 mg) by MOUTH once daily 90 Tablet 3 3 6:18 PM METEOROLOGICAL OBSERVER 10/23/19 23 Active buPROPion HCL (WELLBUTRIN XL) [...] response. 0.4 mL 1 4 3:07 PM METEOROLOGICAL OBSERVER 12/04/19 24 Active Insulin Syringe-Needl e U-100 0.5 mL 31 gauge x 5/16 Syringe Use to inject humalog at mealtimes 180 Each 2 4 2:15 PM METEOROLOGICAL OBSERVER 12/04/19 24 Active insulin glargine U-300 conc (Toujeo SoloStar U-300 Insulin) 300 unit/mL pen syringe Inject 50 Units by subcutaneous injection every evening 15 mL 5 4 4:50 PM METEOROLOGICAL OBSERVER 12/08/19 24 Active triamcinolone acetonide (KENALOG) 0.1 [...] directed 30 Gram 3 5 4:10 PM METEOROLOGICAL OBSERVER 11/07/19 25 Active insulin lispro (HumaLOG,ADME LOG) 100 unit/mL vial Use as directed for insulin pump, Max Daily Dose: 150 units 80 mL 5 12:48 PM CDT 11/28/19 25 Active insulin pump cart,auto,BT, G6/L (Omnipod 5, G6/Tyrel 2 Plus,) Cartridge Change every 2 days as directed 120 Each 2 5 3:02 PM CDT 01/07/20 25 Active insulin lispro (HumaLOG,ADME LOG) 100 unit/mL vial Use as directed for insulin pump, Max Daily Dose: 150 units 80 mL 01/07/20 25 Active Blood-Glucose Sensor (FreeStyle Tyrel 2 Plus Sensor) Device change sensor every 15 days 6 Each 12 5 3:02 PM CDT 01/07/20 25 Active glucagon (Gvoke HypoPen 2-Pack) 1 mg/0.2 mL Auto-Injector Inject 1 mg (0.2 mL) subcutaneously once. May repeat once after 15 minutes if no response 0.4 mL 5 3:02 PM CDT 01/07/20 25 Active fenofibrate (LOFIBRA) 54 mg Take 1 Tablet (54 mg) by mouth daily. 90 Tablet 5 3:02 PM CDT 01/08/20 25 Active icosapent ethyL (VASCEPA) 1 gram Capsule Take 2 Capsules (2 Grams) by mouth 2 times daily. 300 Capsule 5 3:02 PM CDT 01/08/20 25 Active Blood-Glucose Sensor (Dexcom G7 Sensor) Device Use one sensor every 10 days 9 Each 3 07/21/20 24 2024 Discontinued Encounters Date Type Department Care Team Description 01/17/2025 External Device Data [facility] ABSTRACTION Provider, Abstract 12/13/2024 External Device Data [facility] ABSTRACTION Provider, [...]
--- OUTSIDE RECORDS SUMMARY | 2025-01-27 14:46 | XMS_ITS | Encounter Summary ---
Author Organization [facility] Address [address] [place] [address] Care Team Providers Care Help Desk Supervisor Name Role Phone Unavailable Primary Care Provider Unavailabl e Encounter Details Date Type Department Care Team (Late st Contact Info) Description 07/26/2024 Lab Requisition [facility] Physician [facility] - DermPath Lab [address] [facility], [place] [address] Macy Richardson MD [address] [facility] [address]L [place] [address] Social History Tobacco Use Types Packs/Day Years [...] PM CDT) Case Report Dermatopathology Report Case: [id number] Authorizing Provider: Macy Richardson MD Collected: 07/26/2024 03:28 PM Ordering Location: [facility] Physician [facility] - Received: 07/27/2024 03:39 PM DermPath Lab [...] specimen consists of a shave biopsy measuring 40o34d69 mm. Jar 0. 12:41 PM CDT DERMATOPATHOLOGY [...] characteristic determined by the Dermatopathology Laboratory at [facility], directed by Dr. Salvador Mays. These tests need not be, and therefore are not, approved by the [place] Food and Drug Administration. The tests are used for clinical purposes. Billing Codes Specimen Charges Stain Charges 33788 1 12:41 PM CDT DERMATOPATHOLOGY LABORATORY Embedded Images 12:41 PM CDT DERMATOPATHOLOGY LABORATORY Pathology/Cytolo gy TISSUE SPECIMEN FROM SKIN / Unknown 07/26/2024 3:28 PM CDT 07/27/2024 3:39 PM CDT Macy Richardson MD LAB - PATHOLOGY/CYT OLOGY ORDERABLES DERMATOPATHOLOGY LABORATORY [facility] - Department of Dermatology [address] [phone] documented in this encounter Visit Diagnoses Not on filedocumented in this encounter
--- OUTSIDE RECORDS SUMMARY | 2025-01-27 14:46 | XMS_ITS | Continuity of Care Document ---
Author Organization [facility] Address [address] [place] [address] Phone Care Team Providers Care Brass Plater Name Role Phone Larissa Ceja DNP Unavailable Unavail able Allergies, Adverse Reactions, Alerts Substance Reaction Status Criticality ciprofloxacin hives Active No Information Medications Medication Instructions Dosage Effective Dates (start - stop) Status Comments omeprazole 20 mg capsule,delayed release take 1 capsule by oral route every day before a meal 20 MG - Active Zyrtec 10 mg tablet take 1 tablet (10MG) by oral route every day 10 MG - Active insulin pump cartridge SubQ - Active Novolog 100 unit/mL Sub-Q inject 5 - 25 by subcutaneous route as per insulin sliding scale protocol 5-25 - Active Procedures Procedure Date ROUTINE VENIPUNCTURE SPECIMEN HANDLING OFFICE/OUTPATIENT VISIT, EST Nurse Only MENINGOCOCCAL VACCINE, IM IMMUNIZATION ADMIN PREV VISIT, EST, AGE 18-39 CAPILLARY BLOOD DRAW OFFICE/OUTPATIENT VISIT, EST CAPILLARY BLOOD DRAW PREV VISIT, NEW, AGE 12-17 OFFICE/OUTPATIENT VISIT, EST OFFICE/OUTPATIENT VISIT, EST STREP A ASSAY W/OPTIC OFFICE/OUTPATIENT VISIT, EST STREP A ASSAY W/OPTIC PREV VISIT, EST, AGE 12-17 Advance Directives Directive Yes / No Effective Date File Name No Information Encounters Encounter Description Practice Location Reason(s) For Visit Diagnoses Date Provider Providers Copied on Encounter [facility], [address] [place] [address], [address] [place] [address], tel:[phone] [place] No Information 5 Julio C Meltonbi. [address] [place] [address], [address] [place] [address] , . tel:[phone] [facility], [address] [place] [address], [address] [place] [address], tel:[phone] [place] No Information 5 Denise Leija. [address] [place] [address], [facility], . tel:[phone] [facility], [address] [place] [address], [address] [place] [address], [phone] [place] No Information 4 Denise Leija. [address] [place] [address], [facility], . tel:[phone] [facility], [address] [place] [address], [address] [place] [address], tel:[phone] [place] No Information 4 Denise Leija. [address] [place] [address], [facility], . tel:[phone] Referring Provider: Liss Walker, [address] [place] [address], [facility]. tel:[phone] [facility], [address] [place] [address], [address] [place] [address], tel:[phone] [place] Diabetes Mellitus, Juvenile, Controlled 4 Alexandra Frias. [address] [place] [address], [facility], . [phone] OFFICE/OUTPAT IENT VISIT, EST [facility], [address] [place] [address], [address] [place] [address], [place] tel:[phone] [place] cough (chief complaint) headache (chief complaint) fever (chief complaint) Bronchitis, Acute 3 Alexandra Frias. [address] [place] [address], [facility], . tel:[phone] [facility], [address] [place] [address], [id number], tel:[phone] [place] Diabetes Mellitus, Juvenile, Controlled 3 Denise Liss. [address] [place] [address], [facility], . tel:[phone] [facility], [address] [place] [address], [id number], tel:[phone] [place] No Information 3 Phill Farrukh. [address] [place] [address], [address] [place] [address] . tel:[phone] PREV VISIT, EST, AGE 18-39 [facility], [address] [place] [address], [id number], [place] tel:[phone] [place] physical (chief complaint) Other general medical examination for administrative purposes 3 Phill Farrukh. [address] [place] [address], [address] [place] [address] . tel:[phone] Referring Provider: Kimberley Rodriges, [address] [place] [address], [facility]. tel:[phone] [facility], [address] [place] [address], [id number], tel:[phone] [place] Acne Vulgaris, NOS 2 Phill Farrukh. [address] [place] [address], [address] [place] [address] . tel:[phone] OFFICE/OUTPAT IENT VISIT, EST [facility], [address] [place] [address], [id number], tel:[phone] [place] diabetes (follow up) (chief complaint) med check (chief complaint) Diabetes Mellitus, Juvenile, Controlled Jun- 2 Phill Farrukh. [address] [place] [address], [id number] . tel:[phone] Referring Provider: Farrukh Pollock, [address] [place] [address], [id number] . tel:[phone] PREV VISIT, NEW, AGE 12-17 [facility], [address] [place] [address], [id number], tel:[phone] [facility] physical (chief complaint) Diabetes Mellitus (chief complaint) Diabetes Mellitus, Juvenile, ControlledOther general medical examination for administrative purposes 1 Zahira Chu. [address] [place] [address], [facility], . tel:[phone] Referring Provider: Kimberley Rodriges, [address] [place] [address], [facility]. tel:[phone] OFFICE/OUTPAT IENT VISIT, [facility], [address] [place] [address], [id number], tel:[phone] [place] cough (chief complaint) Bronchitis, AcuteBronchitis, Acute May- 1 Emma Barber. [address] [place] [address], [facility]. tel:[phone] Referring Provider: Elisabeth Carter, [address] [place] [address], [facility]. tel:[phone] OFFICE/OUTPAT IENT VISIT, [facility], [address] [place] [address], [id number], tel:[phone] [facility] sore throat (chief complaint) Pharyngitis, AcuteAllergic rhinitisAcne Vulgaris, NOS Ayad- 1 Sammy Figueroa . [address] [place] [address], [facility], . tel:[phone] Referring Provider: Carolina Christianson, [address] [place] [address], [facility]. tel:[phone] OFFICE/OUTPAT IENT VISIT, EST [facility], [address] [place] [address], [address] [place] [address] tel:[phone] [place] No Information 1 Sammy Figueroa . [address] [place] [address], [address] [place] [address]. tel:[phone] Referring Provider: Carolina Christianson, [address] [place] [address], [facility]. tel:[phone] PREV VISIT, EST, AGE 12-17 [facility], [address] [place] [address], [address] [place] [address] tel:[phone] [place] No Information 0 Dar Patrick. [address] [place] [address], [address] [place] [address]. tel:[phone] Referring Provider: Celina Dodge, [address] [place] [address], [facility]. tel:[phone] Family History Family Member Type Diagnosis Age At Onset Problem (finding) Family history of Blood disease Problem (finding) Family history of malig nant melanoma Problem (finding) Family history of Diabe shy mellitus Mother Problem (finding) Renal disease Father Problem (finding) Heart disease Problem (finding) Family history of Heart disease Mother Problem (finding) Liver disease Immunizations Vaccine Date Status Comments MCV4 (11-55 yrs) administered Source: New Immunization Record Payers Payer name Insurance type Covered republican ID Authoriza tishree(s) [facility] [id number] Social History Type Description Quantity Date Captured Comments Sex Male Smoking Status No Information Chief Complaint And Reason For Visit No Information Reason For Referral Reason For Referral No Information Plan Of Treatment Date Type Action Status Referral Ordered: Referral: Dermatology. Follow-up and Treat. ordered History Of Present Illness Encounter Date Complaint History Of Prese nt Illness No Information Functional Status Date Functional Assessmen t No Information Instructions Date Instruction Additional Infor mation Return precautions discussed Contact office immediately Contact office immediately Assessments Type Assessment Date No Information Patient Care Teams Name Effective Dates (start - stop) Status Members No Information
--- OUTSIDE RECORDS SUMMARY | 2025-01-27 14:46 | XMS_ITS | Clinical Summary ---
Author Organization [facility] Address [address] [place] [address] Care Team Providers Care Program Director Substance Abuse Name Role Phone Unavailable Primary Care Provider Unavailabl e Source Comments [facility],non-owned Affiliates and Associated Physician Practices is amultiple site organization consisting of ambulatory clinics and hospital sitesin [place], [place]. This disclosure is being madepursuant to the Care Everywhere program and may not contain all information available regarding this patient. Last updated 18.[facility] [address] Social History Tobacco Use Types Packs/Day Years [...] VACCINE (1 - 2023-2 5 season) 2024 DEPRESSION SCREENING 10/19/2024 INFLUENZA VACCINE (Season Ended) 2025 ZOSTER VACCINE (1 of 2) 2044 HIB [...]
--- OUTSIDE RECORDS SUMMARY | 2025-01-27 14:46 | XMS_ITS | Encounter Summary ---
Author Organization [facility] Address [facility] [place] [address] Care Team Providers Care Floor Supervisor Name Role Phone Kuldeep Hernandez MD Primary Care Provider Unavailable Austen Muniz MD Primary Care Provider Unav ailable Jose Luis Muniz MD Primary Care Provider [phone] Encounter Details Date Type Department Care Team (Late st Contact Info) Description 08/22/2017 Abstract [place] [address] Kuldeep Hernandez MD Social History Tobacco Use [...] documented as of this encounter Care Teams Floor Supervisor Relationship Specialty Start Date End Date Kuldeep Hernandez MD PCP - General 01/18/15 Austen Muniz MD PCP - General FAMILY PRACTICE 06/13/19 03/28/20 Jose Luis Muniz MD [address] [facility] [address] [place] [address] PCP - General FAMILY PRACTICE 03/29/20 documented as of this encounter
--- OUTSIDE RECORDS SUMMARY | 2025-01-27 14:46 | XMS_ITS | Encounter Summary ---
Author Organization [facility] Address [address] [place] [address] Care Team Providers Care Equal Opportunity Director Name Role Phone Unavailable Primary Care Provider Unavailabl e Prior Encounters Date Type Department Care Team Description 01/28/2022 6:15 PM CDT Office Visit [facility] [address] [place] [address] Rachel Landry, DMD 01/28/2022 6:00 PM CDT Office Visit [facility] [address] [place] [address] Beena Hallman, ADARSH 07/02/2021 Travel 07/02/2021 6:00 PM CDT Office Visit [facility] [address] [place] [address] Rachel Landry, DMD 07/02/2021 6:00 PM CDT Office Visit [facility] [address] [place] [address] Beena Hallman, [facility] 11/07/2019 Converted CPS Chart Documents [facility] [address] [place] [phone] <No scans attached> 11/07/2019 Converted 13x Documents [facility] [address] [place] [phone] <No scans attached> Last Filed Vital Signs [...] - ESTABLISHED PATIENT Routine 12/25/2020 2:00 AM OCEANOGRAPHER GEOLOGICAL ORAL HYGIENE INSTRUCTIONS Routine 2020 2:00 AM OCEANOGRAPHER GEOLOGICAL TOPICAL APPLICATION OF FLUORIDE VARNISH Routine 12/25/2020 2:00 AM OCEANOGRAPHER GEOLOGICAL PROPHYLAXIS - ADULT Routine 12/25/2020 2 :00 AM OCEANOGRAPHER GEOLOGICAL ORAL HYGIENE INSTRUCTIONS Routine 2019 2:00 AM CDT TOPICAL APPLICATION OF FLUORIDE VARNISH Routine 06/18/2020 2:00 AM CDT PROPHYLAXIS - ADULT Routine 06/18/2020 2 :00 AM CDT PERIODIC ORAL EVALUATION - ESTABLISHED PATIENT Routine 06/18/2020 2:00 AM CDT CANCELLED APPOINTMENT Routine 05/23/2020 2:00 AM CDT ORAL HYGIENE INSTRUCTIONS Routine 2019 2:00 AM OCEANOGRAPHER GEOLOGICAL PROPHYLAXIS - ADULT Routine 11/24/2019 2 :00 AM OCEANOGRAPHER GEOLOGICAL COMPREHENSIVE ORAL EVALUATION - NEW OR ESTABLISHED PATIENT Routine 11/24/2019 2:00 AM OCEANOGRAPHER GEOLOGICAL PANORAMIC RADIOGRAPHIC IMAGE Routine 11/24/2019 2:00 AM OCEANOGRAPHER GEOLOGICAL INTRAORAL - COMPREHENSIVE SERIES OF RADIOGRAPHIC IMAGES Routine 11/24/2019 2:00 AM OCEANOGRAPHER GEOLOGICAL INTRAORAL PHOTO Routine 11/24/2019 2:00 AM OCEANOGRAPHER GEOLOGICAL INTRAORAL PHOTO Routine 11/24/2019 2:00 AM OCEANOGRAPHER GEOLOGICAL INTRAORAL PHOTO Routine 11/24/2019 2:00 AM OCEANOGRAPHER GEOLOGICAL INTRAORAL PHOTO Routine 11/24/2019 2:00 AM OCEANOGRAPHER GEOLOGICAL Visit Diagnoses Not on file Insurance [facility]
== END 2025-01-27 14:41 | disposition home or self-care (01) ==
PROVIDERS: PCP Family Medicine; Visit Provider Internal Medicine
DX: E10.9 Type 1 diabetes mellitus without complications (principal); E78.5 Hyperlipidemia, unspecified; K76.0 Fatty (change of) liver, not elsewhere classified
CPT/HCPCS: 76700